=== PATIENT | male | born 1965 | race Caucasian/White ===

== ENCOUNTER 2020-11-17 10:26 | Outpatient (CLI) | payer MEDICARE, SELFPAY | END 2020-11-17 10:27 | disposition home or self-care (01) | LOC: ANHCOVIDVC 10:26 | PROVIDERS: PCP Family Medicine | DX: Z23 Encounter for immunization (principal) | CPT/HCPCS: 0001A; 91300 ==

== ENCOUNTER 2020-12-08 10:32 | Outpatient (CLI) | payer MEDICARE, SELFPAY | END 2020-12-08 10:33 | disposition home or self-care (01) | LOC: ANHCOVIDVC 10:32 | PROVIDERS: PCP Family Medicine | DX: Z23 Encounter for immunization (principal) | CPT/HCPCS: 0002A; 91300 ==

== ENCOUNTER 2021-01-27 13:11 | Outpatient (CLI) | payer MEDICARE, SELFPAY ==
--- NOTE | ~2021-01-27 | CT_ITS ---
EXAMINATION: CT lung screening DATE: 01/27/2021 13:51 INDICATION: Personal history of nicotine dependence, prior smoker with 30 pack year history TECHNIQUE: Computed tomography (CT) of the chest was performed without intravenous contrast. The dose -length product (DLP) was 137.83 mGy-cm. Automated exposure control and iterative reconstruction tech [employer] were employed. COMPARISON: 05/25/2017 FINDINGS: There is moderate emphysema. There are stable 2 mm nodules of the upper lobes stable 2 mm p leural-based nodule is noted in the there is an unchanged triangular nodule in association with the m inor fissure on the right, consistent with a fissural lymph node. There is mild atelectasis of the lo wer lobes, lingula, and right middle lobe. There is no pleural effusion or pneumothorax. Changes of c oronary artery bypass grafting are noted. No pathologically enlarged thoracic lymph nodes are identif ied. The heart size is normal. There is mild thoracic spondylosis. IMPRESSION: 1. Lung-RADS category 2: Benign appearance or behavior. Reviewed, dictated and finalized at location B.
== END 2021-01-27 13:12 | disposition home or self-care (01) ==
LOC: ANHIMG 13:22
PROVIDERS: PCP Family Medicine; Visit Provider Family Medicine
DX: Z87.891 Personal history of nicotine dependence (principal)
CPT/HCPCS: 71271

== ENCOUNTER → 2023-03-03 10:51 | Outpatient (CLI) | payer MEDICARE, SELFPAY ==
--- NOTE | ~2023-03-03 | CT_ITS ---
CT Scan of the Chest without Contrast: Clinical Indication: Lung cancer screening, personal history of nicotine dependence Technique: Contiguous sections were acquired throughout the chest without intravenous contrast. Dose reduction technique was used on this scan by utilizing automated exposure control and iterative recon struction technique. The dose-length product (DLP) was 141.24 mGy-cm. COMPARISON: 01/27/2021 Findings: There is no evidence of any significant mediastinal, hilar or axillary lymphadenopathy. There is evid ence of prior CABG. There is no evidence of pleural or pericardial effusion. Stable nodule in the right minor fissure. Stable bibasilar scarring. There is probable mild emphysema . Images through the upper abdomen reveal no abnormalities. Impression: Lung RADS 2: Benign appearance. 12 month follow-up screening CT advised. Reviewed, dictated and finalized at [facility]. Impression: Lung RADS 2: Benign appearance. 12 month follow-up screening CT advised.
== END ==
PROVIDERS: PCP Family Medicine; Visit Provider Nurse Practitioner Family
DX: Z12.2 Encounter for screening for malignant neoplasm of respiratory organs (principal); Z87.891 Personal history of nicotine dependence
CPT/HCPCS: 71271

== ENCOUNTER 2024-06-10 12:59 | Outpatient (CLI) | payer MEDICARE, SELFPAY ==
--- NOTE | ~2024-06-10 | CT_ITS ---
EXAMINATION:CT lung screening DATE: 06/10/2024 13:13 INDICATION: Personal history of nicotine dependence. Smoker who quit 9 years ago with 30 pack year hi story. TECHNIQUE: Computed tomography (CT) of the chest was performed without intravenous contrast. Automate d exposure control and iterative reconstruction technique were employed. The dose-length product (DLP ) was 125.15 mGy-cm. COMPARISON: Chest CT 03/03/2023 FINDINGS: There is mild scarring at the lung apices. There is moderate emphysema. There is mild atele ctasis bilaterally. There is a 6 mm nodule at minor fissure without change. There is a stable 4 mm no dule in right upper lobe. There is a new 4 mm nodule at right lung apex. No pleural effusion. The hea rt size is normal. There are coronary artery calcifications. No pericardial effusion. There are schreiber es of coronary artery bypass grafting. The gallbladder is distended, likely secondary to fasting. The re is moderate cervical spondylosis and mild thoracic spondylosis. There are changes of anterior fusi on procedure in lumbar spine. IMPRESSION: 1. Lung-RADS category 3: Probably benign. Further evaluation is recommended with noncontrast low-dose chest CT in 6 months. Reviewed, dictated and finalized at location A. [facility] IMPRESSION: 1. Lung-RADS category 3: Probably benign. Further evaluation is recommended wit h noncontrast low-dose chest CT in 6 months.
== END 2024-06-10 13:00 | disposition home or self-care (01) ==
LOC: ANHIMG 13:00
PROVIDERS: PCP Family Medicine; Visit Provider Nurse Practitioner Family
DX: Z12.2 Encounter for screening for malignant neoplasm of respiratory organs (principal); Z87.891 Personal history of nicotine dependence; R91.8 Other nonspecific abnormal finding of lung field
CPT/HCPCS: 71271